=== PATIENT | female | born 1955 | race Caucasian/White ===

== ENCOUNTER → 2020-07-12 07:32 | Outpatient (REF) | payer OTHER, SELFPAY ==
--- NOTE | 2020-07-12 | NM_ITS ---
Lexiscan Myocardial perfusion study Indication: Left bundle branch block, assess for coronary disease and ischemia Technique: The patient was brought in for a Lexiscan perfusion study on 07/12/2020 and was injected 0.4 mg of Lexiscan intravenously. Within a minute of this injection 25 mCi of sestamibi was given intravenously. Images were obtained using the SPECT gamma camera interlaced with the gating device. Images were obtained in supine position. Resting perfusion study was performed on 07/13/2020. Patient was administered 25 mCi of sestamibi intravenously at rest. Images were then obtained in supine position. Total DLP 57mGy-cm. Images were processed with the software and compared side to side in short axis, horizontal long axis and vertical long axis views. Findings: Raw acquisition was reviewed. The stress perfusion study showed mildly diminished tracer uptake along the basal septum. There is also reduced uptake in the mid anterior wall. With CT attenuation correction, the basal septal defect is still seen. The mid anterior defect is also persisting and additionally there is reduced uptake along the mid to distal septum as well. The gated study shows normal LV systolic function with calculated LVEF of 63%. LV cavity is normal in size. The gated study shows mildly reduced thickening in the mid anterior wall. Resting study shows reduced uptake in the septum, parts of inferior septum as well as mid anterior wall. No significant change with CT attenuation correction. Gating at rest reveals ejection fraction at 71%. The findings are consistent with no reversible defects. Fixed defect at the septum and mid anterior wall most likely from underlying left bundle branch block. Impression: 1. Myocardial perfusion imaging study shows no evidence of any ischemia. Fixed defect along the septum and mid anterior wall, probably all from left bundle branch block. 2. Gated LVEF is 63% during stress and 71% on rest. 3. Transient ischemic dilatation not present. EKG component of the test reported separately.
--- NOTE | 2020-07-12 07:30 | CA_ITS ---
Transthoracic Echocardiogram Patient (Last, First, Middle): Jenise Valdivia G Gender: Female Date of : 1955 Age: 64 Procedure Date: 07/12/2020 Procedure Type: Transthoracic Echocardiogram Location: OP Height: 170.18 cm Weight: 72.58 kg BSA: 1.84 m2 Heart Rate: bpm BP: 130 / 55 mmHg Shuffle Board Operator: JUAN CARLOS Referring MD: Sher Stephens MD Symptoms: 144.7 LBBB, A69.20 LYME DISEASE, R00.2 PALPITATIONS Study Quality: Good ECG Rhythm: Sinus Conclusions: - The left ventricular systolic function is normal. The visually estimated ejection fraction is between 60-65%. - E/E prime ratio is >15, consistent with elevated filling pressures. Evidence suggests grade I (mild) diastolic dysfunction. - No obvious valvular pathology seen on this study. Findings Left Ventricle Normal left ventricular cavity size. There is normal left ventricular wall thickness. The left ventricular systolic function is normal. The visually estimated ejection fraction is between 60-65%. There is no evidence of regional wall motion abnormalities. E/E prime ratio is >15, consistent with elevated filling pressures. Evidence suggests grade I (mild) diastolic dysfunction. Right Ventricle Normal right ventricular cavity size and systolic function. Atria The left atrium is normal in size. The right atrium is normal in size. Aortic Valve There is a normal trileaflet aortic valve. There is no aortic valve stenosis. There is trace (trivial) aortic valve regurgitation. Mitral Valve The mitral valve appears normal. There is trace mitral valve regurgitation. There is no mitral valve stenosis. Pulmonic Valve The pulmonic valve was not well visualized. Tricuspid Valve Normal tricuspid valve structure. There is trace tricuspid valve regurgitation. The pulmonary artery systolic pressure is normal. Great Vessels The aortic annulus, sinuses of valsalva, and asc aorta are normal in size. Venous The inferior vena cava is normal in size and collapses greater than 50% with inspiration. Pericardium/Pleural There is a trivial pericardial effusion. Prior Study Comparison No significant change compared to prior study dated: 02/26/2017. Recommendations, Care & Conclusions No obvious valvular pathology seen on this study. Measurements 2D Linear Measurements IVSd: 0.93 0.6-0.9/0.6-1.0 cm LVIDd: 4.44 3.9-5.3/4.2-5.9 cm LVIDd Index: 2.41 2.4-3.2/2.2-3.1 cm/m2 LVIDs: 3.06 2.0-3.6 cm LVPWd: 1.08 0.7-1.1 cm Ao Root: 2.30 2.1-3.5 cm LA Diam: 3.50 2.7-3.8/3.0-4.0 cm LAIDs Index: 1.90 1.5-2.3 cm/m2 LV Mass: 187.65 67-162/88-224 g LV Mass Index: 101.98 43-95/49-115 g/m2 LVOT Diam: 1.90 3.0+(-)1.3 cm 2D Systolic Function EF 4C: 57.80 >55% EF 2C: 70.80 >55% EF BiP: 65.90 >55% Mitral Valve MV Pk E: 1.03 MV PK A: 0.68 MV Decel Time: 143.00 E/A: 1.50 E'Lateral: 6.77 E'Medial: 5.71 E/E' Med: 18.00 E/E' Lat: 15.20 PHT: 42.00 MVA PHT: 5.24 Decel Ellsworth: 7.21 Aortic Valve AoV Pk Shaun: 1.49 AoV Pk Grad: 9.00 LVOT LVOT Pk Shaun: 1.18 LVOT Mn Shaun: 0.83 LVOT VTI: 0.27 LVOT Pk Grad: 6.00 LVOT Mn Grad: 3.00 LVOT Diam: 1.90 LVOT Area: 2.84 Diastolic Function MV Pk E: 1.03 MV Pk A: 0.68 E/A: 1.50 E'Medial: 5.71 E/E' Med: 18.00 E' Laterial: 6.77 E/E' Lat: 15.20 Tricuspid Valve TR Pk Shaun: 2.23 TR Pk Grad: 20.00 RA Press: 3.00 RVSP: 23.00 Great Vessels Aorta Ao Root-2D: 2.30 2.0-3.7 cm Ao Asc: 2.80 2.1-3.4 cm Ao Arch: 2.40 Updated in Other Vendor System with Status of Final Greyson Bravo MD electronically signed on 07/14/2020 4:23:13 PM with status of Final
--- NOTE | 2020-07-12 08:30 | CA_ITS ---
Acquisition Time: 2020-07-12 08:20:09 Total Exercise Time: 00:02:00 Test Indications: Abnormal ECG Medications: VIT D VIT B12 Protocol: LEXISCAN Max HR: 121 BPM 76% of Pred: 158 BPM Max BP: 116/062 mmHG Max Work Load: 1.0 METS Pharmacological stress test using Lexiscan while sitting. Tolerated well, denies any anginal sx. Feeling dizzy from Lupe, sx reversed with Aminophyline 75 mg IV. EKG with LBBB no other arrhythmias. non-diagnostic for ischemia. Nuclear images to follow. Normotensive response to test. Test reviewed with Dr. Bravo Referred By: Sher Stephens Overread By: Charla Elena
== END ==
LOC: HO.CARD 07:32
PROVIDERS: Visit Provider Internal Medicine Cardiovascular Disease
DX: I44.7 Left bundle-branch block, unspecified (principal); R00.2 Palpitations; A69.20 Lyme disease, unspecified
CPT/HCPCS: 78452; 93017; 93306; A9500; J0280; J2785

== ENCOUNTER → 2020-07-27 09:31 | Outpatient (BNVA) | payer OTHER, SELFPAY | PROVIDERS: Visit Provider Orthopaedic Surgery | DX: Z76.89 Persons encountering health services in other specified circumstances (principal) ==

== ENCOUNTER → 2020-08-07 15:22 | Outpatient (BNVA) | payer OTHER, SELFPAY | PROVIDERS: Visit Provider Internal Medicine Cardiovascular Disease | DX: I44.7 Left bundle-branch block, unspecified (principal) ==

== ENCOUNTER 2020-09-05 08:00 | Outpatient (RCR) | payer OTHER, SELFPAY ==
--- NOTE | 2020-08-11 15:10 | MHC.PT.EP ---
[facility] [place] Office [place] Office [place] Office [address] Ruthy Rossi [address] [phone] F: [phone] F: [phone] F: [phone] F: [phone] Physical Therapy Plan of Care Date of Evaluation: 08/11/20 Date of Surgery: Diagnosis: Left hip bursitis Assessment: The patient arrived reporting left hip pain. She presented with local pain over greater trochanter, pain with sidelying on on left side, and pain with stairs and during transition of movement. Her pain presentation is consistent with left hip bursitis. She has some repetitive posture habits that may contribute to her pain. I would also like to evaluate her work desk ergonomics since she spends a great deal of time sitting at her desk. She is a good candidate for skilled Physical Therapy. Frequency and Duration: The patient will be seen Short Term Goals: 1. The patient to have no pain with normal ADL's 2. 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 2. Pt to be able to manage her symptoms throughout the day with selected exercises. 3. Pt to have improved strength in pelvic stabilizers demonstrated by tolerance to pelvic stability program greater than 45 min Treatment Plan: Modalities to reduce pain, spasms and effusion. Manual therapy to restore motion and function. Therapeutic exercise to improve strength and flexibility. Neuromuscular re-education for posture and balance. Therapeutic activities to return to functional activities of daily living. Please sign and return to therapist. Thank you for your referral.
--- NOTE | 2020-10-05 14:47 | MHC.PT.DC ---
[facility] [place] Office [place] Office [place] Office [address] Ruthy Rossi [address] [phone] F: [phone] F: [phone] F: [phone] F: [phone] Physical Therapy Discharge Report Diagnosis: Left hip bursitis Date of Surgery: Date of Evaluation: 08/11/20 Date of Discharge: 10/05/20 Treatments to Date: 7 Cancellations to Date: 0 No Shows to Date: 0 Discharge Status: Achieved Goals Improved Function Independent with HEP Discharge Summary: Pt's pain reduced with REIL and FELTON. I did thoracic stretching due to patient is hypomobile in thoracic spine. Pt cued on mechanics with foot position, habits while sitting and standing as she tends to IR in resting position. Pt cued on avoidance of trunk flexion. Electronically signed by: Zunilda Villalobos DPT Please sign and return to therapist. Thank you for your referral.
== END 2020-10-05 14:49 | disposition other institution (70) ==
LOC: HO.PT 08:00
PROVIDERS: Visit Provider Orthopaedic Surgery
DX: M70.62 Trochanteric bursitis, left hip (principal)
CPT/HCPCS: 97033; 97110; 97112; 97140; 97162; 97535

== ENCOUNTER → 2020-09-07 09:18 | Outpatient (BNVA) | payer OTHER, SELFPAY | PROVIDERS: Visit Provider Orthopaedic Surgery | DX: Z76.89 Persons encountering health services in other specified circumstances (principal) ==

== ENCOUNTER 2020-10-03 09:30 | Outpatient (REF) | payer OTHER, SELFPAY ==
--- NOTE | 2020-10-03 09:41 | XR_ITS ---
EXAMINATION: KNEE X-RAY CLINICAL INFORMATION: Pain COMPARISON: None TECHNIQUE: Standing AP view of both knees and sunrise and lateral view right knee FINDINGS: Right knee: Bone alignment is normal. No fracture or dislocation is seen. The femoral tibial joints are normal. There is arthritis at the patellofemoral joint with joint space narrowing and osteophyte formation. There is a question of ossified loose body seen projecting over the medial patella femoral joint on the sunrise view. There is a small joint effusion. Standing AP view of the left knee is unremarkable. XR/XR knee RT 2V IMPRESSION: Right knee: Arthritis at the patellofemoral joint and question small ossified intra-articular loose body projecting over the medial patellofemoral joint. Small joint effusion. Unremarkable left knee.
--- NOTE | 2020-10-03 09:41 | XR_ITS ---
EXAMINATION: KNEE X-RAY CLINICAL INFORMATION: Pain COMPARISON: None TECHNIQUE: Standing AP view of both knees and sunrise and lateral view right knee FINDINGS: Right knee: Bone alignment is normal. No fracture or dislocation is seen. The femoral tibial joints are normal. There is arthritis at the patellofemoral joint with joint space narrowing and osteophyte formation. There is a question of ossified loose body seen projecting over the medial patella femoral joint on the sunrise view. There is a small joint effusion. Standing AP view of the left knee is unremarkable. XR/XR knee standing BI IMPRESSION: Right knee: Arthritis at the patellofemoral joint and question small ossified intra-articular loose body projecting over the medial patellofemoral joint. Small joint effusion. Unremarkable left knee.
== END 2020-10-03 09:31 | disposition home or self-care (01) ==
LOC: HO.HOSX 09:30
PROVIDERS: Visit Provider Orthopaedic Surgery
DX: M25.561 Pain in right knee (principal); M25.562 Pain in left knee
CPT/HCPCS: 73560; 73565

== ENCOUNTER 2020-10-30 07:26 | Outpatient (REF) | payer OTHER, SELFPAY ==
--- NOTE | 2020-10-30 08:07 | XR_ITS ---
EXAMINATION: XR BILATERAL AP KNEE STANDING AND RIGHT KNEE 2 VIEW CLINICAL INFORMATION: Right knee pain. COMPARISON: Right knee and AP bilateral knees standing 10/03/2020. TECHNIQUE: AP bilateral knee standing and right knee 2 views. FINDINGS: AP Bilateral Knee: Medial and lateral compartment joint spaces both knees are preserved. No bony erosive changes or loose body seen. No fracture or dislocation. Right Knee: Lateral and sunrise views reveal mild loss of patellofemoral compartment joint space with periarticular spurring. No abnormal joint effusion seen. There is a small loose body seen anterior to the anterior and posterior tibial plateau, question loose bodies; they are stable. Previously seen loose body projecting over the medial femoral condyle on sunrise view is not seen at this time and may be displaced. XR/XR knee RT 2V IMPRESSION: Mild degenerative changes. Patellofemoral compartment with periarticular spurring. No loose body seen on the sunrise view. There are small fixed loose bodies or enthesophytes anterior and posterior to tibial plateau, unchanged to previous exam 10/03/2020. No abnormal joint effusion seen.
--- NOTE | 2020-10-30 08:07 | XR_ITS ---
EXAMINATION: XR BILATERAL AP KNEE STANDING AND RIGHT KNEE 2 VIEW CLINICAL INFORMATION: Right knee pain. COMPARISON: Right knee and AP bilateral knees standing 10/03/2020. TECHNIQUE: AP bilateral knee standing and right knee 2 views. FINDINGS: AP Bilateral Knee: Medial and lateral compartment joint spaces both knees are preserved. No bony erosive changes or loose body seen. No fracture or dislocation. Right Knee: Lateral and sunrise views reveal mild loss of patellofemoral compartment joint space with periarticular spurring. No abnormal joint effusion seen. There is a small loose body seen anterior to the anterior and posterior tibial plateau, question loose bodies; they are stable. Previously seen loose body projecting over the medial femoral condyle on sunrise view is not seen at this time and may be displaced. XR/XR knee standing BI IMPRESSION: Mild degenerative changes. Patellofemoral compartment with periarticular spurring. No loose body seen on the sunrise view. There are small fixed loose bodies or enthesophytes anterior and posterior to tibial plateau, unchanged to previous exam 10/03/2020. No abnormal joint effusion seen.
== END 2020-10-30 07:27 | disposition home or self-care (01) ==
LOC: HO.HOSX 07:26
PROVIDERS: Visit Provider Orthopaedic Surgery
DX: M23.91 Unspecified internal derangement of right knee (principal)
CPT/HCPCS: 73560; 73565

== ENCOUNTER → 2020-11-07 08:07 | Outpatient (BNVA) | payer OTHER, SELFPAY | PROVIDERS: PCP Physician Assistant; Visit Provider Obstetrics & Gynecology ==

== ENCOUNTER 2020-11-14 13:54 | Outpatient (REF) | payer OTHER, SELFPAY ==
--- NOTE | ~2020-11-14 | US_ITS ---
EXAMINATION: PELVIC ULTRASOUND CLINICAL INFORMATION: Right ovarian cyst COMPARISON: Previous pelvic ultrasound March [address] scan March 2019 TECHNIQUE: Transabdominal and transvaginal pelvic ultrasound was performed. Transvaginal exam was performed for better visualization of the uterus and ovaries. FINDINGS: The uterus is retroverted and measures 6.7 x 2.8 x 3.5 cm in dimension. No focal uterine lesion is seen. Endometrial thickness is normal measuring 0.4 cm. The right ovary is enlarged and measures 4.7 x 2.8 x 4.7 cm, volume 44 mL. There is a minimally complex cyst in the right ovary measuring 4.5 x 3.5 x 4.3 cm with small focus of wall calcification. This measured 4.2 x 3.6 x 4 cm on previous ultrasound March 2020 and 4.1 x 3.5 x 4.[address] March 2019. This does not appear appreciably changed. The left ovary is visualized transabdominally only and measures 0.5 x 0.8 x 1.2 cm. There are prominent vessels in the left adnexa again suggestive of pelvic congestion. There is no fluid in the pelvis. US/US transvaginal IMPRESSION: Stable minimally complex right ovarian cyst with small focus of wall calcification from previous exams. This measures 4.5 x 3.5 x 4.3 cm. Prominent vessels in the left adnexa suggestive of pelvic congestion.
--- NOTE | ~2020-11-14 | US_ITS ---
EXAMINATION: PELVIC ULTRASOUND CLINICAL INFORMATION: Right ovarian cyst COMPARISON: Previous pelvic ultrasound March [address] scan March 2019 TECHNIQUE: Transabdominal and transvaginal pelvic ultrasound was performed. Transvaginal exam was performed for better visualization of the uterus and ovaries. FINDINGS: The uterus is retroverted and measures 6.7 x 2.8 x 3.5 cm in dimension. No focal uterine lesion is seen. Endometrial thickness is normal measuring 0.4 cm. The right ovary is enlarged and measures 4.7 x 2.8 x 4.7 cm, volume 44 mL. There is a minimally complex cyst in the right ovary measuring 4.5 x 3.5 x 4.3 cm with small focus of wall calcification. This measured 4.2 x 3.6 x 4 cm on previous ultrasound March 2020 and 4.1 x 3.5 x 4.[address] March 2019. This does not appear appreciably changed. The left ovary is visualized transabdominally only and measures 0.5 x 0.8 x 1.2 cm. There are prominent vessels in the left adnexa again suggestive of pelvic congestion. There is no fluid in the pelvis. US/US pelvic complete IMPRESSION: Stable minimally complex right ovarian cyst with small focus of wall calcification from previous exams. This measures 4.5 x 3.5 x 4.3 cm. Prominent vessels in the left adnexa suggestive of pelvic congestion.
== END 2020-11-14 13:55 | disposition home or self-care (01) ==
LOC: HO.US 13:54
PROVIDERS: PCP Physician Assistant; Visit Provider Obstetrics & Gynecology
DX: N83.291 Other ovarian cyst, right side (principal)
CPT/HCPCS: 76830; 76856

== ENCOUNTER 2020-11-21 11:00 | Outpatient (REF) | payer OTHER, SELFPAY ==
--- NOTE | ~2020-11-21 | MR_ITS ---
EXAMINATION: MR KNEE WITHOUT CONTRAST, RIGHT CLINICAL INFORMATION: Unspecified internal derangement of right knee. Patient reports right knee pain and swelling, started 09/2020, with no recent injury. COMPARISON: XR right knee 10/30/2020 TECHNIQUE: MRI of the knee without contrast was performed using routine sequences on a high-field scanner. FINDINGS: MENISCI: Medial Meniscus: There is an irregular full-thickness or near full-thickness radial-type tear of the junction of the posterior horn and root of the medial meniscus. There is mild medial extrusion of the body. There is patchy intrasubstance degenerative signal at the junction of the posterior horn and body, with some swelling of the meniscus in this region as well. Lateral Meniscus: Intact LIGAMENTS: Cruciate: Intact Collateral: Intact EXTENSOR MECHANISM: Intact ARTICULAR CARTILAGE/BONE: Patellofemoral Compartment: There is moderate to high-grade cartilage irregularity and thinning in the apex and adjacent medial facet of the patella with minor underlying bone marrow edema. There is patchy cartilage irregularity and thinning in the femoral trochlea ranging from mild to high-grade, most prominent centrally and medially. There are small marginal osteophytes. Medial Compartment: There are focal areas of mild cartilage thinning in the weightbearing medial femoral condyle. There are multiple deep cartilage fissures in the central weightbearing medial tibial plateau and moderate cartilage thinning at the medial margin with mild underlying bone marrow edema. There are small marginal osteophytes. Lateral Compartment: Intact cartilage. Tiny marginal osteophytes. JOINT FLUID AND BURSAE: Small joint effusion. Small loose bodies in the anterior and posterior joint. Small elongated multiloculated ganglion cyst. Fluid tracking inferior to the cyst suspicious for leakage. MR/MR knee RT wo con IMPRESSION: 1. Irregular full-thickness or near full-thickness radial-type tear of the junction of the posterior horn and root of the medial meniscus. Degeneration and some swelling of the junction of the posterior horn and body and mild medial extrusion of the body. 2. Overall moderate to high-grade patellofemoral and [id number] medial compartment arthrosis. 3. Small joint effusion with small loose bodies. 4. Small elongated multiloculated ganglion cyst with leakage.
== END 2020-11-21 11:01 | disposition home or self-care (01) ==
LOC: HO.MRI 11:00
PROVIDERS: Visit Provider Orthopaedic Surgery
DX: M23.91 Unspecified internal derangement of right knee (principal)
CPT/HCPCS: 73721

== ENCOUNTER 2020-11-29 08:00 | Outpatient (RCR) | payer OTHER, SELFPAY ==
--- NOTE | 2020-11-09 13:13 | MHC.PT.EP ---
[facility] [place] Office [place] Office [place] Office [address] [phone] F: [phone] F: [phone] F: [phone] F: [phone] Physical Therapy Plan of Care Date of Evaluation: 11/09/20 Date of Surgery: Diagnosis: Internal derangement right knee Assessment: Pt has decreased right hip extension strength, right hamstring was slightly weaker. Pt has decreased ankle DF. Knee hyperextension noted bilaterally, but worse on right. Pt has medial collapse with TKE and step down. Poor eccentric control noted when knee is neutral. Pt wears heels most often and would benefit from flat footwear which we discussed. Pt was negative for special tests for collateral ligament. Pt had some pain associated with special tests for medial meniscus. Pt will improve with skilled customized exercise program to address current impairments. Frequency and Duration: The patient will be seen 1x/week for 8 weeks Short Term Goals: 1. Pt to have eccentric step down without medial collapse. 2. Pt will be able to show accurate squat form Jail Goals: 1. Pt will have no pain descending stairs 2. Pt to have improved ankle DF greater than 10 degrees AROM 3. Pt will have be able to resume PLOF and exercise without pain. Treatment Plan: Modalities to reduce pain, spasms and effusion. Manual therapy to restore motion and function. Therapeutic exercise to improve strength and flexibility. Neuromuscular re-education for posture and balance. Therapeutic activities to return to functional activities of daily living. Electronically signed by: Zunilda Villalobos PT DPT Please sign and return to therapist. Thank you for your referral.
== END 2021-01-04 08:00 | disposition home or self-care (01) ==
LOC: HO.PT 08:00
PROVIDERS: PCP Physician Assistant; Visit Provider Orthopaedic Surgery
DX: M23.91 Unspecified internal derangement of right knee (principal)
CPT/HCPCS: 97110; 97112; 97140; 97162; 97530

== ENCOUNTER → 2020-12-04 11:40 | Outpatient (BNVA) | payer OTHER, SELFPAY | PROVIDERS: Visit Provider Obstetrics & Gynecology ==

== ENCOUNTER 2020-12-06 14:55 | Outpatient (REF) | payer OTHER, SELFPAY ==
--- NOTE | ~2020-12-06 | MM_ITS ---
EXAMINATION: MM SCREENING DIGITAL BREAST TOMOSYNTHESIS, BILATERAL CLINICAL INFORMATION: Screening. Asymptomatic. The lifetime risk of breast cancer based on the Tyrer-Cuzick Model is 15.2%. COMPARISON: Mammography: December 03, 2019 and studies dating back to March 13, 2010 TECHNIQUE: Digital breast tomosynthesis is performed in both the craniocaudal and mediolateral oblique views along with computer-aided detection (CAD). Synthesized 2D images are generated from the tomosynthesis. FINDINGS: The breasts are heterogeneously dense, which may obscure small masses (ACR BI-RADS breast composition Category c). There is a stable parenchymal pattern within the right breast without new abnormal dominant mass or suspicious grouping of microcalcifications. Within the deep slightly lateral and probably superior aspect of the left breast there appears to be an irregularly marginated density with possible spiculation for which spot compression views and possible ultrasound is recommended. This lies approximately 6 cm from the nipple. MM/MM tomosynthesis screening BI IMPRESSION: Left breast density for further evaluation as described. ASSESSMENT: BI-RADS 0: Incomplete - Need Additional Imaging Evaluation RECOMMENDATION: 1. Additional views of the left breast 2. Targeted ultrasound if warranted after review of the additional views. 3. Radiology department staff will contact the patient for additional imaging. This patient's information was entered into a reminder system with a target due date for their next mammogram.
== END 2020-12-06 14:56 | disposition home or self-care (01) ==
LOC: HO.MAMMO 14:55
PROVIDERS: PCP Physician Assistant; Visit Provider Physician Assistant
DX: Z12.31 Encounter for screening mammogram for malignant neoplasm of breast (principal)
CPT/HCPCS: 77063; 77067

== ENCOUNTER 2021-01-02 10:26 | Outpatient (REF) | payer OTHER, SELFPAY ==
--- NOTE | ~2021-01-02 | MM_ITS ---
EXAMINATION: MM DIAGNOSTIC DIGITAL BREAST TOMOSYNTHESIS, LEFT TARGETED LEFT BREAST ULTRASOUND CLINICAL INFORMATION: Small region of architectural distortion/superimposition of fibroglandular tissue 12 o'clock position left breast. COMPARISON: Mammography: 12/06/2020 and studies dating back to 03/13/2010. TECHNIQUE: Digital breast tomosynthesis is performed. 2D images are generated from the tomosynthesis. The following views are obtained: Spot compression craniocaudal and mediolateral oblique views as well as spot compression 90 degree mediolateral view. Targeted left breast ultrasound. FINDINGS: The breasts are heterogeneously dense, which may obscure small masses (ACR BI-RADS breast composition Category c). Additional views partially compress out the density especially 90 degree mediolateral view. Targeted ultrasound evaluation superior aspect of the left breast did not demonstrate any abnormal cystic or solid mass. No region of abnormal distal sound shadowing was seen. No edematous change within the skin. Recommend 6 month follow-up left breast mammography. Results are discussed with the patient at time of visit. MM/MM tomosynthesis added views L IMPRESSION: Partial effacement of left superior breast density with no ultrasound correlate. Recommend six-month followup left breast mammography. ASSESSMENT: BI-RADS 3: Probably Benign. RECOMMENDATION: Diagnostic mammography in 6 months. This patient's information was entered into a reminder system with a target due date for their next mammogram.
--- NOTE | ~2021-01-02 | US_ITS ---
EXAMINATION: US DIAGNOSTIC ULTRASOUND BREAST, LEFT CLINICAL INFORMATION: Question region of architectural distortion superior aspect of the left breast.. COMPARISON: Mammography of same day and December 06, 2020. TECHNIQUE: Ultrasound of the breast is performed with real-time menendez scale imaging and color Doppler. FINDINGS: Targeted ultrasound evaluation superior aspect of the left breast did not demonstrate any abnormal cystic or solid mass. No region of abnormal distal sound shadowing was seen. No edematous change within the parenchyma. Recommend 6 month follow-up left breast mammography. Results are discussed with the patient at time of visit. US/US breast LT limited IMPRESSION: Partial effacement of left superior breast density with no ultrasound correlate. Recommend six-month follow-up left breast mammography. ASSESSMENT: BI-RADS 3: Probably Benign RECOMMENDATION: Diagnostic mammography in 6 months. .
== END 2021-01-02 10:27 | disposition home or self-care (01) ==
LOC: HO.MAMMO 10:26
PROVIDERS: Visit Provider Physician Assistant
DX: R92.2 Inconclusive mammogram (principal)
CPT/HCPCS: 76642; 77061; 77065

== ENCOUNTER 2021-05-04 06:27 | Outpatient (REF) | payer OTHER, SELFPAY ==
[2021-05-04 07:58] LABS: Estimated Average Glucose 108 mg/dL; Hemoglobin A1c % 5.4 %
[2021-05-04 08:06] LABS: Alanine Aminotransferase 12 U/L (0-31); Albumin Level 4.3 g/dL (3.5-5.0); Alkaline Phosphatase 67 U/L (39-117); Anion Gap 12 (12-20); Aspartate Amino Transferase 17 U/L (5-31); Bilirubin Total 0.4 mg/dL (0.0-1.0); Blood Urea Nitrogen 12 mg/dL (9-16); Calcium 9.6 mg/dL (8.4-10.2); Carbon Dioxide 26 mmol/L (22-29); Chloride 108 mmol/L (96-108); Cholesterol 203 mg/dL; Estimated Glomerular Filt Rate > 60; Glucose Fasting 88 mg/dL (60-99); HDL Cholesterol 72 mg/dL; LDL Cholesterol Calculated 120 mg/dl; Potassium 4.5 mmol/L (3.3-5.1); Sodium 141 mmol/L (135-145); Total Protein 6.4 g/dL (6.5-8.0); Triglycerides 55 mg/dL
[2021-05-04 08:18] LABS: TSH reflex Free T4 2.49 uIU/mL (0.32-4.0)
[2021-05-05 08:11] LABS: Lyme Abs Screen <0.90 index
[2021-05-10 22:28] LABS: Babesia IgG <1:64 titer (<1:64); Babesia IgM <1:20 titer (<1:20)
== END 2021-05-04 06:28 | disposition home or self-care (01) ==
LOC: HO.LAB 06:27
PROVIDERS: PCP Physician Assistant; Visit Provider Physician Assistant
DX: Z01.84 Encounter for antibody response examination (principal); Z13.220 Encounter for screening for lipoid disorders; Z13.29 Encounter for screening for other suspected endocrine disorder; A69.29 Other conditions associated with Lyme disease; I31.1 Chronic constrictive pericarditis
CPT/HCPCS: 36415; 80053; 80061; 83036; 84443; 86617; 86618; 86753

== ENCOUNTER 2021-05-16 11:25 | Outpatient (REF) | payer OTHER, SELFPAY ==
--- NOTE | ~2021-05-16 | US_ITS ---
EXAMINATION: ULTRASOUND PELVIS COMPLETE. CLINICAL INFORMATION: Right-sided ovarian cyst. COMPARISON: Ultrasound pelvis 11/14/2020. TECHNIQUE: Transabdominal and transvaginal ultrasound of pelvis is performed. FINDINGS: The uterus is retroverted and retroflexed measuring 5.56 cm in length, 2.6 cm in AP and 5 cm in transverse dimension. Endometrial thickness is 0.19 cm. No focal uterine lesions seen. Cervix unremarkable. The right ovary measures 4.72 x 4.56 x 4.25 cm and volume 47.90 mL. There is a complex echogenic cyst measuring 4.3 x 3.5 x 4.2 cm. Previously right ovary measured 4.7 x 3.8 x 4.7 cm. There are left ovary measures 1.4 x 1.1 x 1.30 volume 1.0 mL. It appears unremarkable. Previously left ovary measured 1.5 x 0.80 x 2.0 cm. There are prominent vessels seen in the left adnexa. There is no free fluid in the cul-de-sac US/US pelvic complete IMPRESSION: Complex cyst right ovary. On the previous exam it measured 4.5 x 3.5 x 4.1 cm., Stable. Unremarkable uterus and left wrist. There are prominent vessels in the left adnexa likely pelvis venous congestion
--- NOTE | ~2021-05-16 | US_ITS ---
EXAMINATION: ULTRASOUND PELVIS COMPLETE. CLINICAL INFORMATION: Right-sided ovarian cyst. COMPARISON: Ultrasound pelvis 11/14/2020. TECHNIQUE: Transabdominal and transvaginal ultrasound of pelvis is performed. FINDINGS: The uterus is retroverted and retroflexed measuring 5.56 cm in length, 2.6 cm in AP and 5 cm in transverse dimension. Endometrial thickness is 0.19 cm. No focal uterine lesions seen. Cervix unremarkable. The right ovary measures 4.72 x 4.56 x 4.25 cm and volume 47.90 mL. There is a complex echogenic cyst measuring 4.3 x 3.5 x 4.2 cm. Previously right ovary measured 4.7 x 3.8 x 4.7 cm. There are left ovary measures 1.4 x 1.1 x 1.30 volume 1.0 mL. It appears unremarkable. Previously left ovary measured 1.5 x 0.80 x 2.0 cm. There are prominent vessels seen in the left adnexa. There is no free fluid in the cul-de-sac US/US transvaginal IMPRESSION: Complex cyst right ovary. On the previous exam it measured 4.5 x 3.5 x 4.1 cm., Stable. Unremarkable uterus and left wrist. There are prominent vessels in the left adnexa likely pelvis venous congestion
== END 2021-05-16 11:26 | disposition home or self-care (01) ==
LOC: HO.US 11:25
PROVIDERS: Visit Provider Obstetrics & Gynecology
DX: N83.291 Other ovarian cyst, right side (principal)
CPT/HCPCS: 76830; 76856

== ENCOUNTER 2021-05-22 07:25 | Outpatient (REF) | payer OTHER, SELFPAY ==
--- NOTE | ~2021-05-22 | MR_ITS ---
EXAMINATION: MR ABDOMEN WITHOUT CONTRAST CLINICAL INFORMATION: Z80.0 - Family history of malignant neoplasm of digestive. Patient notes family history biliary duct cancer and myelofibrosis. COMPARISON: CT abdomen and pelvis with contrast 03/11/2019. Pelvic ultrasound 05/16/2021, 11/14/2020, 03/08/2020, 06/21/2019. TECHNIQUE: MR abdomen is performed without gadolinium contrast. Coronal and axial images are obtained. Additional MRCP sequence obtained. FINDINGS: LUNG BASES: The visualized lung bases are unremarkable. LIVER, GALLBLADDER, AND BILIARY TREE: The liver is normal in size and smooth in contour and homogeneous in signal. There is no significant signal loss on out of phase imaging to suggest hepatic steatosis. A small cyst just under 1 cm is again seen left lobe, segment 2, similar to CT 2019. There has been prior cholecystectomy. There is mild fullness central biliary ducts similar to CT 2019. The common hepatic duct measures approximately 1.1 cm similar to the CT study with smooth tapering towards the ampulla. There is no ductal wall thickening or intraluminal filling defect. No stricture or extrinsic compression. The duct contour is similar to the CT. PANCREAS: Normal in size and signal. Pancreatic duct normal in caliber. No divisum. SPLEEN: Unremarkable. ADRENAL GLANDS: Unremarkable. KIDNEYS AND URETERS: The kidneys are normal in size and shape. No hydronephrosis. No perinephric stranding. GASTROINTESTINAL TRACT: No bowel obstruction. No ascites or fluid collection. ABDOMINAL WALL: No significant hernia is appreciated. LYMPH NODES: No lymphadenopathy. VASCULAR: Unremarkable on noncontrast exam. OSSEOUS STRUCTURES: Marrow signal normal. ADDITIONAL: The chronic adnexal cyst is largely beyond the [id number] and not assessed. MR/MR abdomen wo con IMPRESSION: 1. Prior cholecystectomy. Biliary tree stable from CT 03/11/2019. No ductal calculus or wall thickening. 2. Tiny cyst left hepatic lobe, stable. 3. Pancreatic duct normal in caliber.
== END 2021-05-22 07:26 | disposition home or self-care (01) ==
LOC: HO.MRI 07:25
PROVIDERS: PCP Physician Assistant; Visit Provider Physician Assistant
DX: K76.89 Other specified diseases of liver (principal); Z13.818 Encounter for screening for other digestive system disorders; Z80.0 Family history of malignant neoplasm of digestive organs
CPT/HCPCS: 74181

== ENCOUNTER → 2021-05-30 11:04 | Outpatient (BNVA) | payer OTHER, SELFPAY | PROVIDERS: PCP Physician Assistant; Visit Provider Obstetrics & Gynecology ==

== ENCOUNTER 2021-07-10 12:33 | Outpatient (REF) | payer OTHER, SELFPAY ==
--- NOTE | ~2021-07-10 | MM_ITS ---
EXAMINATION: MM DIAGNOSTIC DIGITAL BREAST TOMOSYNTHESIS, LEFT CLINICAL INFORMATION: Short interval six-month follow-up for question of architectural changes mid upper left breast. The lifetime risk of breast cancer based on the Tyrer-Cuzick Model is 17%. COMPARISON: Mammography: Mammography 01/02/2021, 12/06/2020, and prior exams dating back to 06/20/2005. Ultrasound left breast 01/02/2021. TECHNIQUE: Digital breast tomosynthesis is performed in both the craniocaudal and mediolateral oblique views along with computer-aided detection (CAD). Synthesized 2D images are generated from the tomosynthesis. FINDINGS: The breasts are heterogeneously dense, which may obscure small masses (ACR BI-RADS breast composition Category c). There is fibronodular parenchymal pattern. There is no architectural abnormality, developing density, or mass in the central upper left breast in area of previous interest. Parenchymal pattern appears similar to prior studies. There are no abnormal calcifications. The axilla and skin contours are unremarkable. The sternalis muscle is partly within [id number]-cp-[id number] at the posterior medial left breast on CC view similar to some of the prior exams. Results are provided to the patient at time of visit by the technologist. MM/MM tomosynthesis diagnostic LT IMPRESSION: 1. No mammographic evidence of malignancy. 2. No architectural abnormality or developing density. ASSESSMENT: BI-RADS 2: Benign RECOMMENDATION: Routine annual mammography screening. This patient's information was entered into a reminder system with a target due date for their next mammogram.
== END 2021-07-10 12:34 | disposition home or self-care (01) ==
LOC: HO.MAMMO 12:33
PROVIDERS: Visit Provider Physician Assistant
DX: R92.2 Inconclusive mammogram (principal)
CPT/HCPCS: 77061; 77065

== ENCOUNTER 2021-11-05 14:26 | Outpatient (REF) | payer OTHER, SELFPAY ==
--- NOTE | ~2021-11-05 | US_ITS ---
EXAMINATION: US ABDOMEN LIMITED CLINICAL INFORMATION: Clinical history swelling, mass or lump, trunk. Mass/lump epigastric area. Rule out hernia. COMPARISON: CT abdomen and pelvis 03/11/2019 TECHNIQUE: Limited ultrasound imaging through the umbilical region was performed. FINDINGS: There is a small umbilical hernia containing fat. The neck measures 0.97 cm wide. US/US abdomen limited IMPRESSION: Small lumbar canal hernia containing fat. This are concordant with patient's pointing towards the mass/lump in the epigastric/mid abdomen.
== END 2021-11-05 14:27 | disposition home or self-care (01) ==
LOC: HO.HMGCX 14:26
PROVIDERS: PCP Physician Assistant; Visit Provider Physician Assistant
DX: R22.2 Localized swelling, mass and lump, trunk (principal)
CPT/HCPCS: 76705

== ENCOUNTER → 2021-12-14 11:14 | Outpatient (BNVA) | payer OTHER, SELFPAY | PROVIDERS: PCP Physician Assistant; Visit Provider Surgery ==

== ENCOUNTER 2021-12-26 15:46 | Outpatient (REF) | payer OTHER, SELFPAY ==
--- NOTE | ~2021-12-26 | MM_ITS ---
EXAMINATION: MM SCREENING DIGITAL BREAST TOMOSYNTHESIS, BILATERAL CLINICAL INFORMATION: Screening. Asymptomatic. The lifetime risk of breast cancer based on the Tyrer-Cuzick Model is 6.4%. COMPARISON: Mammography: July 10, 2021 and studies dating back to January 07, 2014 TECHNIQUE: Digital breast tomosynthesis is performed in both the craniocaudal and mediolateral oblique views along with computer-aided detection (CAD). Synthesized 2D images are generated from the tomosynthesis. FINDINGS: The breasts are heterogeneously dense, which may obscure small masses (ACR BI-RADS breast composition Category c). There are no significant masses, abnormal calcifications, or other abnormalities. MM/MM tomosynthesis screening BI IMPRESSION: There are no significant changes from prior study. ASSESSMENT: BI-RADS 1: Negative RECOMMENDATION: Routine annual mammography screening. This patient's information was entered into a reminder system with a target due date for their next mammogram.
== END 2021-12-26 15:47 | disposition home or self-care (01) ==
LOC: HO.MAMMO 15:46
PROVIDERS: PCP Physician Assistant; Visit Provider Physician Assistant
DX: Z12.31 Encounter for screening mammogram for malignant neoplasm of breast (principal)
CPT/HCPCS: 77063; 77067

== ENCOUNTER 2023-01-01 15:48 | Outpatient (REF) | payer OTHER, SELFPAY ==
--- NOTE | ~2023-01-01 | MM_ITS ---
EXAMINATION: MM SCREENING DIGITAL BREAST TOMOSYNTHESIS, BILATERAL CLINICAL INFORMATION: Screening. Asymptomatic. Family history breast cancer, sister. The lifetime risk of breast cancer based on the Tyrer-Cuzick Model is 12%. COMPARISON: Mammography: 12/26/2021, 07/10/2021, 01/02/2021, 12/06/2020, 12/03/2019, 11/27/2018 TECHNIQUE: Digital breast tomosynthesis is performed in both the craniocaudal and mediolateral oblique views along with computer-aided detection (CAD). Synthesized 2D images are generated from the tomosynthesis. FINDINGS: The breasts are heterogeneously dense, which may obscure small masses (ACR BI-RADS breast composition Category c). Breast tissue composition borders on average fibroglandular. There are no significant masses, abnormal calcifications, or other abnormalities. Parenchymal pattern is similar to prior studies. There is no developing density or architectural abnormality. The axilla and skin contours are unremarkable. No significant changes. MM/MM tomosynthesis screening BI IMPRESSION: No mammographic evidence of malignancy. ASSESSMENT: BI-RADS 1: Negative RECOMMENDATION: Routine annual mammography screening. This patient's information was entered into a reminder system with a target due date for their next mammogram.
== END 2023-01-01 15:49 | disposition home or self-care (01) ==
LOC: HO.MAMMO 15:48
PROVIDERS: PCP Physician Assistant; Visit Provider Physician Assistant
DX: Z12.31 Encounter for screening mammogram for malignant neoplasm of breast (principal)
CPT/HCPCS: 77063; 77067

== ENCOUNTER 2023-10-14 15:55 | Outpatient (AMB) | payer MEDICARE, SELFPAY ==
[2023-10-14 15:56] VITALS: BP 116/64; PULSE 67; O2SAT 98; BMI 24.0
--- NOTE | 2023-10-14 15:56 | MHC.PC.OV ---
Vital Signs 10/14/23 15:56 Height 5 ft 7 in Weight 153 lb 2 oz BMI 24.0 BP 116/64 Blood Pressure Location Lt brachial Position Sitting Pulse 67 Pulse Source Pulse Oximeter Pulse Oximetry (%) 98 Oxygen Delivery Method Room Air Intake Visit Reasons: Annual PE Layout Artist Required: No It Desktop Support Specialist: Not Required per policy Accompanied by: Self / Same As Patient Allergies polymyxin B Adverse Reaction (Intermediate, Verified 10/14/23 16:36) inflammation Medication List - Last Reconciled 10/14/23 by Demian Rodriguez PA-C No Known Home Meds Tobacco use date assessed: 10/14/23 Fall risk assessment: No Falls in past year Last assessed Fall Risk: 10/14/23 Dental Screening Dental Screen Date: 10/14/23 Did you have a dental visit in the last 12 months?: Yes Did you have a dental problem in the last 6 months where you did not have access to dental care?: No Was dental information given to patient?: Patient has dentist HPI Annual PE HPI Details Patient is a 68-year-old female here today for annual physical.? Patient has a past medical history significant chronic Lyme disease, Ovarian cyst left bundle-branch block. .. Concerns-- > reports having a couple panic attacks since she has been retired that she was able to handle on her own. We discussed the possibility of having an as-needed medication for her panic attacks and she is considering. Also Last year she did have hernia repaired with mesh ovarian cyst removal at [facility]. She does report feeling a twinge in her upper epigastric region. She is wondering if there is recurrence of her hernia. Otherwise no vomiting or bowel issues. . Chronic Lyme disease:? Has been seeing a chronic Lyme specialist and [place] has been trying different herbal remedies. Reports she has been feeling much better. No recurrent pericarditis. .. Ovarian cyst: Is seeing a rn gyn specialist at [facility] whom is recommending removal of her ovary due to a complex cyst. Also does an epigastric hernia which they are recommending repairing at the same time as removal of her ovary. Mammogram:? Mammogram done December of 2022 BI-RADS 1 . Colonoscopy:? Colonoscopy done by Dr. Crandall [id number] repeat 10 years , . Vaccines: Declines COVID vaccine and Shingles vac, needs flu vaccine ( declines) , up-to-date with tetanus .. GASOLINE TESTER: Followed by GASOLINE TESTER here at [facility] Medical History Complex ovarian cyst Feeling of incomplete bladder emptying Internal derangement of right knee LBBB (left bundle branch block) Trochanteric bursitis, left hip Bundle branch block Lyme disease Surgical History History of heart surgery History of endoscopy H/O laparoscopy History of cholecystectomy Family History Mother Cancer Myelofibrosis Father Cancer Brain aneurysm Bile duct cancer Sister Breast cancer Brother In good health Son In good health Son In good health Social History (Updated 10/14/23 @ 16:46 by Demian Rodriguez PA-C) Housing: House Alcohol intake: current Alcohol intake frequency: a few times a month Patient Tobacco Use Status: Former Tobacco user e-Cigarette/Vaping Use: Never Used Second Hand Smoke Exposure: Yes service: No Current occupational status: retired Gender identity: Female Cognitive needs: No Hearing needs: No Vision needs: No Questionnaire PHQ-9 Over the last 2 weeks, how often have you been bothered by any of the following problems? 1. Little interest or pleasure in doing things: not at all 2. Feeling down, depressed, or hopeless: not at all 3. Trouble falling or staying asleep, or sleeping too much: not at all 4. Feeling tired or having little energy: not at all 5. Poor appetite or overeating: not at all 6. Feeling bad about yourself - or that you are a failure or have let yourself or your family down: not at all 7. Trouble concentrating on things, such as reading the newspaper or watching television: not at all 8. Moving or speaking so slowly that other people could have noticed. Or the opposite - being so fidgety or restless that you have been moving around a lot more than usual: not at all 9. Thoughts that you would be better off or of hurting yourself in some way: not at all Total score: 0 Depression Screening Interpretation: Negative Depression Screening Done: Yes 36369 - PHQ-9 Billing: Yes Source: Developed by Alec Greenet B.W. Alex, Gabriel Kinney and colleagues, with an educational leeroy from [employer]. Thrive Questionnaire Date Thrive assessed: 10/14/23 I am a: Patient What is your living situation today?: I have a steady place to live Within the past 12 months, did the food you bought not last and you didn't have the money to get more?: Never true Within the past 12 months, did you worry whether your food would run out before you got money to buy more?: Never true Do you have trouble paying for medicines?: No Do you have trouble getting transportation to medical appointments?: No Do you have trouble paying your heating and electricity bill?: No Do you have trouble taking care of your child, family member or friend?: No Do you have trouble with day-to-day activities such as bathing, preparing meals, shopping, managing finances, etc.?: No Are you currently unemployed and looking for a job?: No Are you interested in more education?: No Please select the resources that you would like help with: None AUDIT C Alcohol Use Questionnaire (AUDIT-C) 1. How often do you have a drink containing alcohol?: Monthly or less 2. How many drinks containing alcohol do you have on a typical day when you are drinking?: 1 or 2 3. How often do you have six or more drinks on one occasion?: Never Total Score: 1 HORACIO-7 AMB Questionnaire HORACIO-7 Date HORACIO - 7 assessed: 10/14/23 Feeling nervous, anxious, or on edge: 0 = Not at all Not being able to stop or control worryin = Not at all Worrying too much about different things: 0 = Not at all Trouble relaxin = Not at all Being so restless that it is hard to sit still: 0 = Not at all Becoming easily annoyed or irritable: 0 = Not at all Feeling afraid as if something awful might happen: 0 = Not at all Total HORACIO-7 score (0-4 normal; 5-9 mild; 10-14 moderate; 15-21 severe): 0 Source: Developed by Ambika Green, Gabriel Kinney and colleagues, with an educational leeroy from [employer]. HORACIO-7 Assessment Billing HORACIO-7 Assessment Tool: HORACIO-7 Assessment 78326 Review of Systems Const Denies body aches, Denies chills, Denies excessive sweating, Denies fatigue, Denies fever(s) and Denies headache(s) Eyes Denies blurry vision ENT Denies dysphagia, Denies vertigo, Denies dizziness, Denies headache(s), Denies hearing loss and Denies tinnitus Card Denies chest pain, Denies chest pain with activity, Denies syncope, Denies irregular heart rhythm and Denies dyspnea Resp Denies chest congestion, Denies cough, Denies hemoptysis, Denies dyspnea and Denies wheezing GI Denies abdominal pain, Denies melena, Denies hematochezia, Denies coffee ground emesis, Denies dysphagia, Denies diarrhea, Denies nausea and Denies vomiting Denies urinary frequency, Denies dysuria, Denies urinary hesitancy and Denies urinary urgency Musc Denies arthralgias, Denies limited range of motion, Denies muscle cramps and Denies muscle weakness Skin/Breast Denies rash and Denies skin ulcer Neuro Denies Abnormal speech present, Denies confusion, Denies vertigo, Denies dizziness, Denies syncope, Denies headache(s), Denies memory loss and Denies seizure-like activity Psych Denies anxiety, Denies confusion, Denies depression, Denies memory loss, Denies panic attacks and Denies paranoia Endo Denies excessive sweating, Denies fatigue, Denies flushing, Denies polydipsia and Denies polyuria Aller/Immun Denies wheezing Physical exam (Primary Care) Vital Signs: Last Vital Signs Pulse 67 10/14/23 15:56 BP 116/64 10/14/23 15:56 Pulse Ox 98 10/14/23 15:56 Oxygen Delivery Method Room Air 10/14/23 15:56 BMI result Body Mass Index 24.0 Tobacco/Smoking Status: Tobacco use Status Tobacco use date assessed 10/14/23 10/14/23 15:59 Patient Tobacco Use Status Former Tobacco user 10/14/23 16:45 e-Cigarette/Vaping Use Never Used 10/14/23 16:45 PHQ-9: PHQ-9 Score PHQ-9: Total score 0 10/14/23 16:39 Depression Screening Interpretation: Negative Thrive Assessment: Date of Thrive Assessment Date Thrive assessed 10/14/23 10/14/23 15:59 Const General: cooperative, comfortable, no acute distress, alert and awake; No confusion Orientation/consciousness: oriented to person, oriented to place, patient oriented x3 and No confusion HENMT Head: Yes normocephalic Ears: external ears normal and TM's normal bilaterally Face and sinus: No sinus tenderness Mouth: Normal oral and palatal mucosa present and tongue normal Teeth and gingiva: dentition normal and gingiva normal Throat: Yes posterior oropharynx normal, Yes tonsils normal and Yes uvula midline Eyes Conjunctivae: conjunctivae normal Sclerae: sclerae normal Pupils: Equal, round and reactive pupils present EOM: EOMs intact bilaterally Direct Ophthalmoscopy: No no photophobia Neck Neck: Yes no lymphadenopathy, No tender and Yes no JVD Thyroid: Thyroid normal Carotids: no bruits Chest Chest palpation & inspection: no tenderness Resp Effort & Inspection: normal respiratory effort, no audible wheezes, not labored and no stridor Auscultation: no crackles, no rales, no rhonchi and no wheezes Cardio Jugular venous distension: no JVD Rate: regular rate, not bradycardic and not tachycardic Rhythm: regular rhythm Bruits: no carotid bruits Peripheral pulses: Peripheral pulses 2+ throughout GI Inspection: Yes normal to inspection, No abdominal wall ecchymosis and No visible herniation Palpation (GI): Soft to palpation, nontender, no guarding, not rigid and No hepatosplenomegaly present Auscultation: normoactive bowel sounds General: Yes no CVA tenderness Back/Spine/Pelvis Back: no CVA tenderness and No back tenderness Cervical Spine: cervical ROM normal Thoracic/Lumbar Spine: thoracic and lumbar spine normal to inspection, straight leg raise negative bilaterally, No thoraco-lumbar ROM limited and No lumbar spinal tenderness Skin Lesions: no lesions Rashes: no rashes Wounds: no wounds Neuro General: oriented to person, oriented to place, patient oriented x3, CN's II-XI intact bilaterally and No confusion Cranial nerves: Yes Equal, round and reactive pupils present and Yes Normal accommodation reflex present Cognition (Neuro): normal cognition Speech: No Abnormal speech present Gait exam (Neuro): Normal gait present Motor exam (neuro): 5/5 motor strength present throughout Extrem Right upper extremity: full ROM; no cyanosis Left upper extremity: full ROM; no cyanosis Right lower extremity: no edema Left lower extremity: no edema Psych Appearance: grossly normal Mental Status: mental status grossly normal Affect: normal affect Attitude: cooperative Thought process: Normal thought process present Assessment and Plan Assessment & Plan (1) Annual physical exam: Code(s): Z00.00 - Encounter for general adult medical examination without abnormal findings (2) Epigastric hernia: Code(s): K43.9 - Ventral hernia without obstruction or gangrene Plan: Had hernia repair last year [facility]. Does report some epigastric twinges ever since she has been working out at gym. No palpable hernia noted. She is considering another imaging to evaluate for recurrent hernia. (3) Borderline high cholesterol: Code(s): E78.9 - Disorder of lipoprotein metabolism, unspecified Plan: Has history of borderline high cholesterol. Will get fasting labs done in near future evaluate. 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 Now on a cocktail of vitamins and supplements. Has been feeling much better. No recurrence of pericarditis. 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
== END 2023-10-14 17:10 | disposition home or self-care (01) ==
PROVIDERS: PCP Physician Assistant; Visit Provider Physician Assistant
DX: K43.9 Ventral hernia without obstruction or gangrene (principal); E78.9 Disorder of lipoprotein metabolism, unspecified; A69.29 Other conditions associated with Lyme disease; I31.1 Chronic constrictive pericarditis
CPT/HCPCS: 99214

== ENCOUNTER 2024-01-05 14:43 | Outpatient (REF) | payer MEDICARE, SELFPAY ==
--- NOTE | ~2024-01-05 | XR_ITS ---
EXAMINATION: XR FOOT, LEFT CLINICAL INFORMATION: Left foot injury. COMPARISON: None available. TECHNIQUE: AP, lateral, and oblique views of the left foot. FINDINGS: Arrow points to the fifth metatarsal head region. There is focal soft tissue swelling. Subtle cortical step-off identified in the medial base of the fifth proximal phalanx. Underlying mild hallux valgus. Hammertoe deformities. XR/XR foot LT 2V IMPRESSION: Suspect nondisplaced fracture fifth proximal phalanx. Intra-articular extension not identified but not entirely excluded.
== END 2024-01-05 14:44 | disposition home or self-care (01) ==
LOC: HO.XRAY 14:43
PROVIDERS: PCP Physician Assistant; Visit Provider Physician Assistant
DX: S99.922A Unspecified injury of left foot, initial encounter (principal)
CPT/HCPCS: 73620

== ENCOUNTER 2024-02-09 10:08 | Outpatient (REF) | payer MEDICARE, SELFPAY | END 2024-02-09 10:09 | disposition home or self-care (01) | LOC: HO.MAMMO 10:08 | PROVIDERS: PCP Physician Assistant; Visit Provider Physician Assistant | DX: Z12.31 Encounter for screening mammogram for malignant neoplasm of breast (principal) | CPT/HCPCS: 77063; 77067 ==

== ENCOUNTER → 2024-02-09 10:15 | Outpatient (BNV) | payer MEDICARE, SELFPAY | PROVIDERS: PCP Physician Assistant; Visit Provider Radiology Diagnostic Radiology | DX: Z12.31 Encounter for screening mammogram for malignant neoplasm of breast (principal) | CPT/HCPCS: 77063; 77067 ==

== ENCOUNTER 2024-10-18 15:56 | Outpatient (AMB) | payer MEDICARE, SELFPAY ==
--- NOTE | 2024-10-18 15:59 | A.OFFVIS_ITS ---
Intake Vital Signs 10/18/24 16:04 Height 5 ft 7 in Weight 134 lb 4 oz BMI 21.0 BP 128/68 Blood Pressure Location Lt brachial Position Sitting Pulse 70 Pulse Source Pulse Oximeter Pulse Oximetry (%) 96 Oxygen Delivery Method Room Air Intake Visit Reasons: AWV G0438 eligible 01/05/24 per [employer] Nurse Leader Required: No Accompanied by: Self / Same As Patient Allergies polymyxin B Adverse Reaction (Intermediate, Verified 10/18/24 16:06) inflammation Medication List - Last Reconciled 10/18/24 by Demian Rodriguez PA-C amoxicillin 500 mg PO Q8H 7 days HPI AWV G0438 eligible 01/05/24 per [employer] HPI Details Patient is a 69-year-old female here today for annual wellness visit.? Patient has a past medical history significant chronic Lyme disease, Ovarian cyst left bundle-branch block. Today we discussed patient's sleetmute of care and end of life planning. We review and discuss patient's comprehensive care plan which was scanned into patient's documents. Mammogram:? Mammogram done February of 2024 BI-RADS 1 . Colonoscopy:? Colonoscopy done by Dr. Crandall [id number] repeat 10 years , . Vaccines: Declines COVID vaccine and Shingles vac, needs flu vaccine ( declines) , up-to-date with tetanus .. 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 HPI Comments History of Present Illness Details reviewed past medical history- yes reviewed surgical / hospitalization history- yes reviewed current medications- yes reviewed family history- yes home safety throw rugs? grab bars? raised toilet seat? working smoke detectors? activities of daily living difficulty bathing or showering? difficulty dressing? difficulty using the toilet? difficulty getting in and out of bed? difficulty walking? receives help from other person's with any of the above tasks? instrumental activities of daily living uses telephone - gets to place out of walking distance- go shopping for groceries- repairs own meals- does own minor home maintenance- does own laundry- does own housework- manages own money- currently takes medication- end of life planning discussed advanced directives- yes advanced directives on file? discussed wishes expressed in advanced directives. fall risk have you had any falls with injuries in the past year? have you had 2 or more falls in the past year? fall risk assessment: [facility] Medical History Complex ovarian cyst Feeling of incomplete bladder emptying Internal derangement of right knee LBBB (left bundle branch block) Trochanteric bursitis, left hip Bundle branch block Lyme disease Surgical History History of heart surgery History of endoscopy H/O laparoscopy History of cholecystectomy Family History Mother Cancer Myelofibrosis Father Cancer Brain aneurysm Bile duct cancer Sister Breast cancer Brother In good health Son In good health Son In good health Social History Housing: House Alcohol intake: current Alcohol intake frequency: a few times a month Patient Tobacco Use Status: Former Tobacco user e-Cigarette/Vaping Use: Never Used Second Hand Smoke Exposure: Yes service: No Current occupational status: retired Gender identity: Female Cognitive needs: No Hearing needs: No Vision needs: No Questionnaire Medicare Wellness Checkup [age] 65-71 What gender do you identify with?: female During the past 4 weeks, how much have you been bothered by emotional problems such as feeling anxious, depressed, irritable, sad or downhearted, and blue?: slightly During the past 4 weeks, has your physical & emotional health limited your social activities with family, friends, neighbors, or groups?: not at all During the past 4 weeks, how much bodily pain have you generally had?: no pain During the past 4 weeks, was someone available to help you if you needed & wanted help?: yes, as much as I wanted During the past 4 weeks, what was the hardest physical activity you could do for at least 2 minutes?: very heavy Can you get to places out of walking distance without help? (For eg., can you travel alone on buses, taxis or drive your car?): Yes Can you go shopping for groceries or clothes without someone's help?: Yes Can you prepare your own meals?: Yes Can you do your housework without help?: Yes Because of any health problems, do you need the help of another person with your personal care needs such as eating, bathing, dressing or getting around the house?: No Can you handle your own money without help?: Yes During the past 4 weeks, how would you rate your health in general?: excellent During the past 4 weeks how have things been going for you?: pretty well Are you having difficulties driving your car?: no Do you always fasten your seat belt when you are in a car?: yes, usually During the past 4 weeks, how many drinks of wine, beer, or other alcoholic beverages did you have?: 1 drink or less per week Do you exercise for about 20 minutes 3 or more times a week?: yes, all the time Have you been given information to help with the following?: yes: Hazards in your house that might hurt you? and yes: Keeping track of your medications? How often do you have trouble taking medicines the way you have been told to take them?: I do not have to take medicine How confident are you that you can control & manage most of your health problems?: very confident What is your race?: White Mini Mental State Exam (MMSE) Orientation What is the (year) (season) (date) (day) (month)?: year Where are we (state) (county) (town or city) (hospital) (floor)?: town or city Attention & Calculation (CHOOSE ONE) Ask pt to begin with 100 & count backward by 7. Stop after 5 repeats. If pt cannot ask them to spell the word WORLD backward.: 72 Spell WORLD backwards (DLROW): 5 letters Score Score: 8 Activity of Daily Living Bathing - sponge bath, tub bath or shower: receives no assistance (gets in/out by self, if usual bathing means Dressing - getting clothes from closets & drawers, including inner/outer garments & fasteners.: gets clothes & gets completely dressed without help Toileting - going to the 'toilet room' for urine/bowel elimination & cleaning self/arranging clothes: goes to toilet room, cleans self, arranges clothes without help Transfer: moves in & out of bed and chair without help (may use support object) Continence: controls urination/bowel movements completely by self Feeding: feeds self without help Total Score: 0 Information obtained from: patient Using telephone: independent Traveling: independent Shopping: independent Preparing meals: independent Housework: independent Taking medicine: independent Managing money: independent PHQ-9 Over the last 2 weeks, how often have you been bothered by any of the following problems? 1. Little interest or pleasure in doing things: not at all 2. Feeling down, depressed, or hopeless: not at all 3. Trouble falling or staying asleep, or sleeping too much: not at all 4. Feeling tired or having little energy: not at all 5. Poor appetite or overeating: not at all 6. Feeling bad about yourself - or that you are a failure or have let yourself or your family down: not at all 7. Trouble concentrating on things, such as reading the newspaper or watching television: not at all 8. Moving or speaking so slowly that other people could have noticed. Or the opposite - being so fidgety or restless that you have been moving around a lot more than usual: not at all 9. Thoughts that you would be better off or of hurting yourself in some way: not at all Total score: 0 Depression Screening Interpretation: Negative Depression Screening Done: Yes 67197 - PHQ-9 Billing: Yes Source: Developed by Drs. Brian Rios, Ambika Johnson, Gabriel Kinney and colleagues, with an educational leeroy from [employer]. Physical Exam Vital Signs: Last Vital Signs Pulse 70 10/18/24 16:04 BP 128/68 10/18/24 16:04 Pulse Ox 96 10/18/24 16:04 Oxygen Delivery Method Room Air 10/18/24 16:04 BMI result Body Mass Index 21.0 HEENT Other: hearing screening whisper test- PASS Eyes Other: vision screening- 20 20 OS OD OU Other: urinary incontinence? no Neuro Other: balance Romberg- normal tandem walk test- able walk-in turned test- able rise from sit to stand- within 2 seconds Office Procedures Flu Questionnaire Does the patient have a severe egg allergy?: No Does the patient have severe life threatening allergies?: No Does the patient have a fever or illness today?: No Has the patient ever had Guillain-[place] Syndrome?: No Has the patient ever had any past reaction to a flu shot?: No Immunizations Fluarix Triv [id number] (PF) 45 mcg (15 mcg x 3)/0.5 mL IM syringe Performing Provider: Demian Rodriguez PA-C Performing Location: [facility] Documented (not given) by: DESTINY Scott on 10/18/24 16:07 Reason Not Given: Patient Refused Assessment & Plan Assessment & Plan (1) Annual wellness visit: Code(s): Z00.00 - Encounter for general adult medical examination without abnormal findings Plan: As per HPI (2) Postmenopausal: Code(s): Z78.0 - Asymptomatic menopausal state Plan: In need of bone density screening Orders: Orders Influenza [id number] Immunization 10/18/24 Z23 - Encounter for immunization XR DEXA axial skeleton Today Z78.0 - Asymptomatic menopausal state Quality Reporting (2019) Depression/Bipolar (159/160/161/177) PHQ-9: Total score: 0 Coding Level of Care Code Medicare First (G0438) Diagnoses Annual wellness visit Z00.00 Postmenopausal Z78.0 CPT Codes Advance Care Planning - Time spent: 1-15 minutes, not on file ([id number]) Additional Codes PHQ-9 - 03081 - PHQ-9 Billing: Yes ([id number]) Advance Care Planning Advance Care Planning discussion: Exists, not on file Date of discussion: 10/18/24 Who was present: Patient Forms completed: MOLST Time spent: 1-15 minutes, not on file Actual minutes spent: 6
[2024-10-18 16:04] VITALS: BP 128/68; PULSE 70; O2SAT 96; BMI 21.0
== END 2024-10-18 16:52 | disposition home or self-care (01) ==
PROVIDERS: PCP Physician Assistant; Visit Provider Physician Assistant
DX: Z23 Encounter for immunization (principal)

== ENCOUNTER → 2024-10-18 15:56 | Outpatient (BNVA) | payer MEDICARE, SELFPAY | PROVIDERS: PCP Physician Assistant; Visit Provider Physician Assistant | DX: Z00.00 Encounter for general adult medical examination without abnormal findings (principal); Z78.0 Asymptomatic menopausal state; Z28.21 Immunization not carried out because of patient refusal | CPT/HCPCS: 90471; 96127 ==

== ENCOUNTER 2024-11-23 09:07 | Outpatient (REF) | payer MEDICARE, SELFPAY | END 2024-11-23 09:08 | disposition home or self-care (01) | LOC: HO.MAMMO 09:07 | PROVIDERS: PCP Physician Assistant; Visit Provider Physician Assistant | DX: Z13.820 Encounter for screening for osteoporosis (principal); Z78.0 Asymptomatic menopausal state | CPT/HCPCS: 77080 ==

== ENCOUNTER → 2024-11-23 09:15 | Outpatient (BNV) | payer MEDICARE, SELFPAY | PROVIDERS: PCP Physician Assistant; Visit Provider Radiology Diagnostic Radiology | DX: E28.39 Other primary ovarian failure (principal) | CPT/HCPCS: 77080 ==

== ENCOUNTER 2025-03-03 10:07 | Outpatient (REF) | payer MEDICARE, SELFPAY | END 2025-03-03 10:08 | disposition home or self-care (01) | LOC: HO.MAMMO 10:07 | PROVIDERS: PCP Physician Assistant; Visit Provider Physician Assistant | DX: Z12.31 Encounter for screening mammogram for malignant neoplasm of breast (principal) | CPT/HCPCS: 77063; 77067 ==

== ENCOUNTER → 2025-03-03 10:15 | Outpatient (BNV) | payer MEDICARE, SELFPAY | PROVIDERS: PCP Physician Assistant; Visit Provider Internal Medicine | DX: Z12.31 Encounter for screening mammogram for malignant neoplasm of breast (principal) | CPT/HCPCS: 77063; 77067 ==

== ENCOUNTER 2025-04-27 10:45 | Outpatient (AMB) | payer MEDICARE, SELFPAY ==
--- NOTE | 2025-04-27 10:52 | MHC.PC.OV ---
Vital Signs 04/27/25 10:53 Height 5 ft 7 in Weight 134 lb 6 oz BMI 21.0 BP 110/68 Blood Pressure Location Lt brachial Position Sitting Pulse 68 Pulse Source Pulse Oximeter Temp 97.3 F Temp Source Temporal Artery Scan Pulse Oximetry (%) 97 Oxygen Delivery Method Room Air Intake Visit Reasons: F/U, Anxiety Intake Note: Patient is here to follow up on Anxiety. Remote Broadcast Technician Required: No Supervisor Ship Maintenance Services: Not Required per policy Accompanied by: Self / Same As Patient Allergies polymyxin B Adverse Reaction (Intermediate, Verified 04/27/25 11:00) inflammation Medication List - Last Reconciled 04/27/25 by Demian Rodriguez PA-C No Known Home Meds Tobacco use date assessed: 04/27/25 Fall risk assessment: 1 Fall in past year Last assessed Fall Risk: 04/27/25 Dental Screening Dental Screen Date: 04/27/25 Did you have a dental visit in the last 12 months?: Yes Did you have a dental problem in the last 6 months where you did not have access to dental care?: No Was dental information given to patient?: Patient has dentist HPI F/U, Anxiety HPI Details The patient is a 69-year-old female presenting with anxiety and insomnia. The patient reports that she has been experiencing anxiety, for which she has started seeing a counselor with her partner, Lynette. She mentions improvement in managing anxiety through counseling sessions. The patient also reports insomnia, noting that she does not sleep well and alternates between taking olha-oej-qgbvljl sleep aids such as ZzzQuil and Sleepytime. She expresses a preference for non-pharmacological interventions and mentions trying melatonin and other natural remedies. [facility] Medical History Complex ovarian cyst Feeling of incomplete bladder emptying Internal derangement of right knee LBBB (left bundle branch block) Trochanteric bursitis, left hip Bundle branch block Lyme disease Surgical History History of heart surgery History of endoscopy H/O laparoscopy History of cholecystectomy Family History Mother Cancer Myelofibrosis Father Cancer Brain aneurysm Bile duct cancer Sister Breast cancer Brother In good health Son In good health Son In good health Social History Housing: House Alcohol intake: current Alcohol intake frequency: a few times a month Patient Tobacco Use Status: Former Tobacco user e-Cigarette/Vaping Use: Never Used Second Hand Smoke Exposure: Yes service: No Current occupational status: retired Gender identity: Female Cognitive needs: No Hearing needs: No Vision needs: No Questionnaire PHQ-9 Over the last 2 weeks, how often have you been bothered by any of the following problems? 1. Little interest or pleasure in doing things: not at all 2. Feeling down, depressed, or hopeless: not at all 3. Trouble falling or staying asleep, or sleeping too much: several days 4. Feeling tired or having little energy: not at all 5. Poor appetite or overeating: not at all 6. Feeling bad about yourself - or that you are a failure or have let yourself or your family down: not at all 7. Trouble concentrating on things, such as reading the newspaper or watching television: not at all 8. Moving or speaking so slowly that other people could have noticed. Or the opposite - being so fidgety or restless that you have been moving around a lot more than usual: not at all 9. Thoughts that you would be better off or of hurting yourself in some way: not at all Total score: 1 Depression Screening Interpretation: Positive Depression Screening Done: Yes 85468 - PHQ-9 Billing: Yes Source: Developed by Drs. Brian Rios, Ambika Johnson, Gabriel Kinney and colleagues, with an educational leeroy from [employer]. Thrive Questionnaire Date Thrive assessed: 04/27/25 I am a: Patient What is your living situation today?: I have a steady place to live Within the past 12 months, did the food you bought not last and you didn't have the money to get more?: Never true Within the past 12 months, did you worry whether your food would run out before you got money to buy more?: Never true Do you have trouble paying for medicines?: No Do you have trouble getting transportation to medical appointments?: No Do you have trouble paying your heating and electricity bill?: No Do you have trouble taking care of your child, family member or friend?: No Do you have trouble with day-to-day activities such as bathing, preparing meals, shopping, managing finances, etc.?: No Are you currently unemployed and looking for a job?: No Are you interested in more education?: No Please select the resources that you would like help with: None Currently or been in a relationship where the following occur: No concerns reported THRIVE Score: 0 AUDIT C Alcohol Use Questionnaire (AUDIT-C) 1. How often do you have a drink containing alcohol?: Monthly or less 2. How many drinks containing alcohol do you have on a typical day when you are drinking?: 1 or 2 3. How often do you have six or more drinks on one occasion?: Less than monthly Total Score: 2 HORACIO-7 AMB Questionnaire HORACIO-7 Date HORACIO - 7 assessed: 04/27/25 Feeling nervous, anxious, or on edge: 0 = Not at all Not being able to stop or control worryin = Not at all Worrying too much about different things: 0 = Not at all Trouble relaxin = Not at all Being so restless that it is hard to sit still: 0 = Not at all Becoming easily annoyed or irritable: 0 = Not at all Feeling afraid as if something awful might happen: 0 = Not at all Total HORACIO-7 score (0-4 normal; 5-9 mild; 10-14 moderate; 15-21 severe): 0 Source: Developed by Drs. Brian Rios, Ambika Johnson, Gabriel Kinney and colleagues, with an educational leeroy from [employer]. HORACIO-7 Assessment Billing HORACIO-7 Assessment Tool: HORACIO-7 Assessment 33307 Review of Systems Const Denies headache(s) Eyes Denies loss of vision ENT Denies vertigo, Denies dizziness, Denies headache(s) and Denies sore throat Card Denies chest pain, Denies leg edema and Denies lightheadedness Resp Denies cough, Denies hemoptysis and Denies wheezing GI Denies abdominal pain, Denies melena, Denies constipation, Denies diarrhea and Denies vomiting Denies urinary frequency, Denies dysuria and Denies urinary urgency Musc Denies arthralgias, Denies joint swelling, Denies numbness and Denies tingling Neuro Denies Abnormal speech present, Denies behavioral changes, Denies vertigo, Denies dizziness, Denies headache(s), Denies loss of vision, Denies memory loss, Denies numbness and Denies tingling Psych Denies anxiety, Denies behavioral changes, Denies depression, Denies memory loss and Denies panic attacks Chaka/Lymph Denies easy bleeding and Denies easy bruising Aller/Immun Denies wheezing Physical exam (Primary Care) Vital Signs: Last Vital Signs Temp 97.3 F 04/27/25 10:53 Pulse 68 04/27/25 10:53 BP 110/68 04/27/25 10:53 Pulse Ox 97 04/27/25 10:53 Oxygen Delivery Method Room Air 04/27/25 10:53 BMI result Body Mass Index 21.0 Tobacco/Smoking Status: Tobacco use Status Tobacco use date assessed 04/27/25 04/27/25 10:56 Patient Tobacco Use Status Former Tobacco user 04/27/25 10:56 e-Cigarette/Vaping Use Never Used 04/27/25 10:56 PHQ-9: PHQ-9 Score PHQ-9: Total score 1 04/27/25 11:14 Depression Screening Interpretation: Positive Thrive Assessment: Date of Thrive Assessment Date Thrive assessed 04/27/25 04/27/25 10:56 Currently or been in a relationship where the following occur: No concerns reported Const General: healthy appearing, no acute distress, alert and awake Nutritional Appearance: well nourished Orientation/consciousness: oriented to person, oriented to place and oriented to time HENMT Ears: TM's normal bilaterally General nose exam: Normal nasal mucous membranes and turbinates present Eyes Conjunctivae: conjunctivae normal Sclerae: sclerae normal Pupils: Equal, round and reactive pupils present Neck Neck: Yes no lymphadenopathy and Yes no JVD Thyroid: Thyroid normal Carotids: no bruits Resp Effort & Inspection: normal respiratory effort and not tachypneic Auscultation: no crackles, no rales, no rhonchi and no wheezes Cardio Rate: regular rate Rhythm: regular rhythm Heart sounds: no murmurs and normal S1 and S2 GI Palpation (GI): Soft to palpation, nontender, no hepatomegaly and no splenomegaly Auscultation: normal bowel sounds Skin General skin exam: no rashes or lesions noted and dry skin Neuro General: oriented to person, oriented to place and oriented to time Cranial nerves: Yes Equal, round and reactive pupils present Speech: No Abnormal speech present Gait exam (Neuro): Normal gait present Motor exam (neuro): no tremor noted Extrem Right upper extremity: full ROM Left upper extremity: full ROM Right lower extremity: full ROM; no edema Left lower extremity: full ROM; no edema Psych Mental Status: mental status grossly normal Speech and movement: Normal speech and movement present Affect: normal affect Attitude: cooperative Thought process: Normal thought process present Coding Level of Care Code Est Pt Level 3 (87768) Diagnoses Primary insomnia F51.01 Insomnia type: primary HORACIO (generalized anxiety disorder) F41.1 Additional Codes HORACIO-7 Assessment Billing - HORACIO-7 Assessment Tool: HORACIO-7 Assessment 99874 ([id number]) PHQ-9 - 66246 - PHQ-9 Billing: Yes ([id number]) Assessment & Plan Assessment & Plan (1) Insomnia: Code(s): G47.00 - Insomnia, unspecified Category: Medical Qualifiers: Insomnia type: primary Qualified Code(s): F51.01 - Primary insomnia Plan: The patient is advised to continue using qxda-zoo-thohhvc sleep aids as needed and to consider natural remedies such as melatonin and valerian root. She is encouraged to contact the clinic if her sleep disturbances persist or worsen. (2) HORACIO (generalized anxiety disorder): Code(s): F41.1 - Generalized anxiety disorder Category: Medical Plan: Patient's HORACIO-7 score 0. The patient is advised to continue with counseling sessions for anxiety management, which she reports have been beneficial. She is encouraged to maintain her current non-pharmacological approach and to reach out if further intervention is needed.
[2025-04-27 10:53] VITALS: BP 110/68; PULSE 68; TEMP 36.3; O2SAT 97; BMI 21.0
--- OUTSIDE RECORDS SUMMARY | 2025-04-27 11:47 | XMS_ITS | Patient Health Record ---
[facility] Address [address] [place] [address] Care Team Providers Care Senior Data Analyst Name Role Phone Twan GALARZA, Aldair Primary Care Provider Moe Castano Unavailable [phone] Reason For Referral No Information Medications Medication SIG (Take, Route, Frequency, Duration) Notes Start Date End Date Status Levothyroxine Sodium 50 MCG TAKE 1 TABLET EVERY DAY Oral; Duration: 30 Not-Takin g zzzWalking Boot/ Pneumatic . As directed Wear Daily; Duration: Until further notice 01/08/2016 Active Problems No Known Problems Plan Of Treatment Pending Test Test Name Order Date MRI : Foot, left 01/08/2016 X ray : Foot, left 2V 02/14/2014 X ray : Foot, right 2V 02/14/2014 Insurance Providers Payer Name Payer Address Payer Phone Subscriber Number Group Number Insured Name Patient Relationship to Insured Coverage Start Date Coverage End Date [facility] [address] [facility] [place] [id number] Lynette Valdivia Spouse - patient is the spouse of the insured Medical (General) History Medical History History ICD Code Chicken pox Surgical History Surgery Date(Month/Year) laproscopy bladder sling
== END 2025-04-27 11:24 | disposition home or self-care (01) ==
LOC: HO.HMCH 10:46
PROVIDERS: PCP Physician Assistant; Visit Provider Physician Assistant
DX: F51.01 Primary insomnia (principal); F41.1 Generalized anxiety disorder

== ENCOUNTER → 2025-04-27 10:45 | Outpatient (BNVA) | payer MEDICARE, SELFPAY | PROVIDERS: PCP Physician Assistant; Visit Provider Physician Assistant | DX: F41.1 Generalized anxiety disorder (principal); F51.01 Primary insomnia | CPT/HCPCS: 96127; 99212 ==